=== PATIENT | female | born 1945 | race Caucasian/White ===

== ENCOUNTER 2021-07-01 10:57 | Emergency (ER) | payer OTHER ==
[~2021-07-01] VITALS: Ht 167.6 cm; Wt 76.2 kg
[2021-07-01 12:01] LABS: HEMOGLOBIN 12.2 gm/dl (12.3-15.3); RED BLOOD COUNT 4.25 M/UL (4.00-5.10)
[2021-07-01 12:22] LABS: BUN/CREATININE RATIO 24 (0-10)
== END 2021-07-01 15:50 | disposition home or self-care (01) ==
LOC: ER1 10:57
PROVIDERS: Physician Assistant
DX: U07.1 COVID-19 (principal); I10 Essential (primary) hypertension; Z23 Encounter for immunization; M19.90 Unspecified osteoarthritis, unspecified site; F17.210 Nicotine dependence, cigarettes, uncomplicated; Z90.49 Acquired absence of other specified parts of digestive tract; Z90.710 Acquired absence of both cervix and uterus
CPT/HCPCS: 80053; 85025; 93005; 94760; 99283; M0243

== ENCOUNTER → 2021-09-25 | Outpatient (CLI) | payer OTHER | LOC: KOH-I 13:21 | DX: M79.89 Other specified soft tissue disorders (principal) | CPT/HCPCS: 76857 ==

== ENCOUNTER → 2022-03-06 | Outpatient (CLI) | payer OTHER | LOC: KOH-I 12:55 | DX: M79.662 Pain in left lower leg (principal); M79.661 Pain in right lower leg; F17.200 Nicotine dependence, unspecified, uncomplicated | CPT/HCPCS: 93922; 93925 ==

== ENCOUNTER 2022-03-24 21:40 | Observation (INO) | payer OTHER ==
[~2022-03-24] VITALS: Ht 167.6 cm; Wt 75.8 kg
[2022-03-24 23:01] LABS: HEMOGLOBIN 10.4 gm/dl (12.3-15.3); RED BLOOD COUNT 3.99 M/UL (4.00-5.10); WHITE BLOOD COUNT 5.5 K/UL (4.5-11.0)
[2022-03-24 23:22] LABS: BUN/CREATININE RATIO 22 (0-10)
[2022-03-25] MEDS ORDERED: PLAVIX 75 MG TA75 MG PO (01:27)
[2022-03-25] MEDS ORDERED: LIPITOR80 MG PO (01:27)
[2022-03-25] MEDS ORDERED: ASPIRIN81 MG PO (01:27)
[2022-03-25 08:19] LABS: HEMOGLOBIN 10.6 gm/dl (12.3-15.3); RED BLOOD COUNT 4.07 M/UL (4.00-5.10); WHITE BLOOD COUNT 5.3 K/UL (4.5-11.0)
[2022-03-25 08:44] LABS: BUN/CREATININE RATIO 18 (0-10)
[2022-03-25] MEDS ORDERED: CELEBREX200 MG PO (09:56)
[2022-03-25] MEDS ORDERED: BENTYL 20MG TAB20 MG PO (09:57)
[2022-03-25] MEDS ORDERED: TRAZODONE HCL50 MG PO (09:57)
[2022-03-25] MEDS ORDERED: IBUPROFEN200 MG PO (09:58)
[2022-03-25] MEDS ORDERED: AMLODIPINE BESYL5 MG PO (09:58)
--- NOTE | 2022-03-25 12:25 | NUR ---
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
--- NOTE | 2022-03-25 21:23 | NUR ---
03/25/222122 SABIANISMVANNESSA LI CALLED FOR AN UPDATE ON THE PATIENT AND TO INFORM ME THAT THERE IS STILL NO BED AVAILABLE AT THIS TIME. CONTINUE TO WORK ON GETTING ONE AND WILL CALL AROUND 3 AM FOR UPDATE.
[2022-03-26 06:48] LABS: BUN/CREATININE RATIO 24 (0-10)
[2022-03-26] MEDS ORDERED: VENLAFAXINE HCL75 M1 PO (09:54)
[2022-03-26] MEDS ORDERED: MELATONIN3 MG PO (09:54)
[2022-03-26] MEDS ORDERED: CLOPIDOGREL75 MG PO (09:54)
[2022-03-26] MEDS ORDERED: CRESTOR 10 MG T10 MG PO (09:54)
[2022-03-26] MEDS ORDERED: ASPIRIN EC81 MG PO (09:55)
== END 2022-03-26 11:44 | disposition home or self-care (01) ==
LOC: ER1 21:40 → CDU 03-25 08:48 → MED SURG 4 03-25 11:18
PROVIDERS: Student in an Organized Health Care Education/Training Program; ADMIT Family Medicine
DX: I63.511 Cerebral infarction due to unspecified occlusion or stenosis of right middle cerebral artery (principal); Z20.822 Contact with and (suspected) exposure to COVID-19; I10 Essential (primary) hypertension; F17.200 Nicotine dependence, unspecified, uncomplicated; Z79.899 Other long term (current) drug therapy
CPT/HCPCS: ECHO; 36415; 70450; 70496; 70498; 70551; 71045; 80048; 80053; 80061; 82550; 82553; 83036; 84484; 85025; 93005; 93306; 97110; 97112; 97116; 97161; 97166; 99285; G0378; Q9967; U0002

== ENCOUNTER → 2022-06-25 | Outpatient (CLI) | payer OTHER ==
[~2022-06-25] MED LIST: AMLODIPINE BESYL5 MG PO; ASPIRIN EC81 MG PO; ASPIRIN81 MG PO; BENTYL 20MG TAB20 MG PO; CELEBREX200 MG PO; CLOPIDOGREL75 MG PO; CRESTOR 10 MG T10 MG PO; IBUPROFEN200 MG PO; LIPITOR80 MG PO; MELATONIN3 MG PO; PLAVIX 75 MG TA75 MG PO; TRAZODONE HCL50 MG PO; VENLAFAXINE HCL75 M1 PO
== END ==
LOC: KOH-I 10:06
DX: M51.16 Intervertebral disc disorders with radiculopathy, lumbar region (principal)
CPT/HCPCS: 72148